=== PATIENT | female | born 1965 | race American Indian/Alaskan Native ===

== ENCOUNTER 2017-12-26 12:08 | Inpatient (IN) | payer MEDICARE ==
[2017-12-26 13:12] LABS: LYMPH # 1.3 K/uL (1.0-4.3); MEAN CORPUSCULAR HEMOGLOBIN 28.1 pg (27.0-31.0); MONO # 0.3 K/uL (0.0-0.8); NEUT # 2.9 K/uL (1.8-7.0)
[2017-12-26 13:18] LABS: BASO % 0.7 % (0.0-2.0); EOS % 0.9 % (0.0-4.0); LYMPH % 27.3 % (20.0-40.0); MEAN CELL VOLUME 85.7 fL (81.0-99.0); MEAN CORPUSCULAR HGB CONC 32.8 g/dL (33.0-37.0); MEAN PLATELET VOLUME 8.3 fL (7.2-11.7); MONO % 7.3 % (0.0-10.0); NEUT % 63.8 % (50.0-75.0); RBC 4.27 Mil/uL (3.80-5.20); RED CELL DISTRIBUTION WIDTH 21.2 % (11.5-14.5); WHITE BLOOD COUNT 4.6 K/uL (4.8-10.8)
[2017-12-26 13:27] LABS: ALB/GLOB RATIO 1.2 (1.0-2.1); ALBUMIN 4.6 g/dL (3.5-5.0); ALT/SGPT 45 U/L (9-52); AST/SGOT 95 U/L (14-36); BLOOD UREA NITROGEN 10 mg/dL (7-17); CALCIUM 8.7 mg/dl (8.6-10.4); GFR AFRICAN-AMERICAN > 60; GFR NON-AFRICAN AMERICAN > 60
[2017-12-26 13:33] LABS: SQUAMOUS EPITHIAL 5 /hpf (0-5); URINE BILIRUBIN NEGATIVE (NEGATIVE); URINE BLOOD NEGATIVE (NEGATIVE); URINE CLARITY Hazy (Clear); URINE COLOR Yellow (YELLOW); URINE GLUCOSE (UA) NORMAL (Normal); URINE LEUKOCYTE ESTERASE NEG Leu/uL (Negative); URINE PROTEIN 1+ mg/dL (NEGATIVE)
[2017-12-26 13:38] LABS: BARBITURATES, UR NEGATIVE (NEGATIVE); BENZODIAZEPINES, UR NEGATIVE (NEGATIVE); OPIATES, UR NEGATIVE (NEGATIVE); PHENCYCLIDINE, UR NEGATIVE (NEGATIVE)
[2017-12-26] MEDS ORDERED: Potassium Chloride 20 mEq ER Tab PO STA (13:38)
--- NOTE | 2017-12-26 14:12 | C.PDOC ---
History Of Present Illness 52-year-old female, presents to the emergency department requesting detox from alcohol. Patient last use was this morning. Denies any nausea/vomiting, withdrawal, or any other associated symptoms. No other complaints at this time. Time Seen by Provider: 12/26/17 12:46 Chief Complaint (Nursing): Substance Abuse History Per: Patient History/Exam Limitations: no limitations Past Medical History Reviewed: Historical Data, Nursing Documentation, Vital Signs Vital Signs: Last Vital Signs Temp 98.0 F 12/26/17 15:40 Pulse 95 H 12/26/17 15:40 Resp 20 12/26/17 15:40 BP 142/95 H 12/26/17 15:40 Pulse Ox 95 12/26/17 15:40 - Medical History PMH: Back Problems, Depression, HTN, Hypercholesterolemia, Seizures (ETOH related) Surgical History: Cholecystectomy Family History: States: No Known Family Hx - Social History Hx Alcohol Use: Yes Hx Substance Use: Yes - Immunization History Hx Tetanus Toxoid Vaccination: No Hx Influenza Vaccination: No Hx Pneumococcal Vaccination: No Review Of Systems Constitutional: Negative for: Fever, Chills Cardiovascular: Negative for: Chest Pain Gastrointestinal: Negative for: Vomiting Skin: Negative for: Rash Psych: Negative for: Anxiety, Suicidal ideation, Withdrawal Physical Exam - Physical Exam Appears: Non-toxic, No Acute Distress, Other (EtOH on breath. No signs or sx of acute withdrawal) Skin: Normal Color, Warm, Dry, No Rash Head: Atraumatic, Normacephalic Eye(s): bilateral: Normal Inspection, PERRL, EOMI Nose: Normal Oral Mucosa: Moist Lips: Normal Appearing Neck: Normal ROM Chest: Symmetrical Cardiovascular: Rhythm Regular, No Murmur Respiratory: Normal Breath Sounds, No Accessory Muscle Use Gastrointestinal/Abdominal: Soft, No Tenderness Extremity: Normal ROM, No Deformity, No Swelling Neurological/Psych: Oriented x3, Normal Speech (No focal deficit) ED Course And Treatment - Laboratory Results Result Diagrams: 12/26/17 13:06 12/26/17 13:06 O2 Sat by Pulse Oximetry: 95 (RA) Pulse Ox Interpretation: Normal Medical Decision Making Medical Decision Making: Impression: Alcohol detox Plan: * Bloodwork * Crisis evaluation * UA Labs ordered and reviewed. Potassium low, K-Chloride ordered. In my clinical judgment patient is medically cleared and stable for psychiatric admission. Alcohol level is over 200 will await for sobriety. 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 As per CW patient is to be admitted for detox under Dr Chen service Disposition Counseled Patient/Family Regarding: Diagnosis - Disposition Disposition: HOSPITALIZED Disposition Time: 16:20 Condition: STABLE - POA Present On Arrival: None - Clinical Impression Clinical Impression: Alcohol dependence - Scribe Statement The provider has reviewed the documentation as recorded by the Scribe (Christi Echols) All medical record entries made by the Scribe were at my direction and personally dictated by me. I have reviewed the chart and agree that the record accurately reflects my personal performance of the history, physical exam, medical decision making, and the department course for this patient. I have also personally directed, reviewed, and agree with the discharge instructions and disposition. Decision To Admit - Pt Status Changed To: Hospital Disposition Of: Inpatient - Admit Certification Admit to Inpatient:: After my assessment, the patient will require hospitalization for at least two midnights. This is because of the severity of symptoms shown, intensity of services needed, and/or the medical risk in this patient being treated as an outpatient. - InPatient: Physician Admission Certification: I certify that this patient requires 2 or more midnights of care for the following reason:: Patient for inpatient detox of alcohol - . Bed Request Type: Detox Admitting Physician: Michelle Chen Patient Diagnosis: Alcohol dependence
[2017-12-26] MEDS ORDERED: Potassium Chloride 20 mEq ER Tab PO ONE (14:48)
--- NOTE | 2017-12-26 16:51 | PCM.BM ---
<Marta Blue - Last Filed: 12/26/17 16:50> Treatment Plan Problems - Problems identified on initial assessmt potiential for automonic instability related to alcohol withdrawal Date Initiated: 12/26/17 Time Initiated: 16:51 Assessment reference: NA Status: Active Treatment assets and liabiliti Patient Assests: ADL independent, cognitively intact Patient Liabilities: substance abuse, medical problems - Milieu Protocol Maintain good personal hygiene: daily Encourage regular showers, daily Remind patient to perform daily oral care, daily Assist patient to perform ADL's Maintain personal safety: every shift Educate patient to report safety concerns to staff, every shift Monitor environment for contraband/sharps Medication safety: Monitor for expected outcome, potential side effects: every shift, Assess barriers to learning: every shift, Assess readiness for medication education: every shift <Michelle Chen - Last Filed: 12/27/17 22:01> - Diagnosis (1) Alcohol dependence Status: Acute Interventions: 12/27/17 22:00 * Assess 7x/week regarding severity of withdrawal * Educate regarding risks, benefits, side effects and alternatives of medications * Use Motivational Interviewing for abstinence * Use CBT for relapse prevention * Medication management for withdrawal symptoms * Encourage medication assisted treatment *
[2017-12-26] MEDS: Multiple Vitamins Tab PO SCH (17:30)
[2017-12-26] MEDS ORDERED: Aluminum Hydroxide/Magnesium Hydroxide Susp (30 mL) PO PRN (18:32)
[2017-12-27 08:54] LABS: ALB/GLOB RATIO 1.3 (1.0-2.1); ALBUMIN 4.4 g/dL (3.5-5.0); ALT/SGPT 43 U/L (9-52); AST/SGOT 77 U/L (14-36); BLOOD UREA NITROGEN 10 mg/dL (7-17); CALCIUM 8.6 mg/dl (8.6-10.4); GFR AFRICAN-AMERICAN > 60; GFR NON-AFRICAN AMERICAN > 60
[2017-12-27] MEDS ORDERED: Potassium Chloride 20 mEq ER Tab PO ONE (09:45)
[2017-12-27] MEDS: Multiple Vitamins Tab PO SCH (10:43)
[2017-12-27] MEDS: Magnesium Oxide 400 mg Tab UD PO SCH ×3 (10:43→17:25)
--- NOTE | 2017-12-27 14:23 | PCM.PSYCH ---
Initial Psychiatric Evaluation - Initial Psychiatric Evaluation Type of Admission: Voluntary Legal Status: Capacity Chief Complaint (in patient's own words): "I am here for alcohol withdrawal" History of Present Illness and Precipitating Events: Patient is a 52 year old female who presents to the ED requesting detox from alcohol. Patient last use was in the morning of admission. Patient drinks 1 L of vodka a day (last 1 with this usage and started initially drinking 13 years) . Patient is single, living alone, unemployed, and has one child (34 y/o). This is the first time the patient is presenting to this hospital. Patient does not have detox and rehab history. Patient has attended AA meetings in the past. Patient smokes PPD for the past 20 plus years. On occasion, patient smokes marijuana. Patient denies other use of drugs. Patient is currently having mild withdrawal symptoms, complaining of fatigue, body aches, and nausea. Patient is interested in outpatient rehab or AA and will work with the counselor to make a final plan. Patient denies depression and suicidal ideation. Patient denies auditory, visual, or tactile hallucinations. Detox Hx: denies Rehab Hx: AA meetings (1x) Medical Hx: Stroke, HTN, Lupus, HLD Surgical Hx: Cataract surgery Family Hx: denies Psych Hx: denies Allergies: Sulfur, ACEi Home Meds: aspirin, baclofen, citalopram, duloxetine, folic acid, gabapentin, losartan, simvastatin, thiamine Current Medications: Active Medications Generic Name Dose Route Start Last Admin Trade Name Freq PRN Reason Stop Dose Admin Al Hydrox/Mg Hydrox/Simethicone 30 ml 12/26/17 18:32 Maalox 30 Ml PO Q6 PRN Indigestion / Heartburn Aspirin 81 mg 12/27/17 10:00 12/27/17 10:43 Aspirin Chewable PO 81 mg DAILY ROM Administration Baclofen 10 mg 12/27/17 10:00 12/27/17 10:44 Lioresal PO 10 mg BID ROM Administration Chlordiazepoxide 25 mg 12/26/17 18:00 12/27/17 12:59 Librium PO 12/30/17 17:59 25 mg Q6H ROM Administration Taper Chlordiazepoxide 25 mg 12/26/17 16:51 12/26/17 21:35 Librium PO 25 mg Q4H PRN Administration Alcohol Withdrawal Clonidine HCl 0.1 mg 12/26/17 16:51 12/27/17 12:59 Catapres PO 0.1 mg Q4H PRN Administration Symptoms of alcohol withdrawl Folic Acid 1 mg 12/26/17 17:00 12/27/17 10:44 Folic Acid PO 1 mg DAILY ROM Administration Gabapentin 300 mg 12/27/17 10:00 12/27/17 12:59 Neurontin PO 300 mg TID ROM Administration Losartan Potassium 50 mg 12/27/17 10:00 12/27/17 10:43 Cozaar PO 50 mg DAILY ROM Administration Magnesium Oxide 400 mg 12/27/17 10:00 12/27/17 12:59 Mag-Ox PO 12/30/17 10:01 400 mg TID ROM Administration Multivitamins 1 tab 12/26/17 17:00 12/27/17 10:43 Hexavitamin PO 1 tab DAILY ROM Administration Nicotine 1 patch 12/27/17 10:30 12/27/17 10:43 Nicoderm Cq TD 1 patch DAILY ROM Administration Ondansetron HCl 4 mg 12/27/17 09:12 12/27/17 09:26 Zofran Odt PO 4 mg Q8 PRN Administration Nausea/Vomiting Thiamine HCl 100 mg 12/26/17 17:00 12/27/17 10:43 Vitamin B1 Tab PO 100 mg DAILY ROM Administration Topiramate 50 mg 12/27/17 10:00 12/27/17 10:43 Topamax PO 50 mg BID ROM Administration Trazodone HCl 100 mg 12/27/17 22:00 Desyrel PO HS PRN Insomnia Past Psychiatric History - Past Psychiatric History Previous Treatment History: None Pertinent Medical Hx (Current Medical&Sleep Prob, Allergies): Allergies Allergy/AdvReac Type Severity Reaction Status Date / Time ERIC Inhibitors Allergy Verified 12/26/17 12:17 Sulfa (Sulfonamide Allergy Verified 12/26/17 12:17 Antibiotics) Aspirin [Aspirin EC] 81 mg PO DAILY 12/26/17 Baclofen [Lioresal] 10 mg PO BID 12/26/17 Calcium Carbonate [Calcium] 600 mg PO DAILY 12/26/17 Citalopram [celeXA] 20 mg PO DAILY 12/26/17 DULoxetine [Cymbalta] 60 mg PO DAILY 12/26/17 Ergocalciferol (Vitamin D2) [Vitamin D2] 50,000 unit PO QWK 12/26/17 Folic Acid 1 mg PO DAILY 12/26/17 Gabapentin 300 mg PO QID 12/26/17 Losartan Potassium 50 mg PO DAILY 12/26/17 Mirtazapine [Remeron] 10 mg PO DAILY 12/26/17 Potassium Chloride [K-Dur 20] 8 meq PO DAILY 12/26/17 Simvastatin 20 mg PO DAILY 12/26/17 Thiamine [Vitamin B-1] 100 mg PO DAILY 12/26/17 Topiramate 50 mg PO BID 12/26/17 Review of Systems - Review of Systems All systems: reviewed and no additional remarkable complaints except - Neurological Neurological: UNREMARKABLE - Psychiatric Psychiatric: Abnormal Sleep Pattern, Anxiety, Irritability. absent: Auditory Hallucinations, Confusion, Depression, Homicidal Ideation, Hopelessness, Suicidal Ideation, Visual Hallucinations, Tactile Hallucinations Mental Status Examination - Personal Presentation Personal Presentation: Looks older than stated age - Affect Affect: Constricted - Motor Activity Motor Activity: Calm - Reliability in Providing Information Reliability in Providing Information: Good - Speech Speech: Organized - Mood Mood: Neutral - Formal Thought Process Formal Thought Process: No Impairment - Obsessions/Compulsions Obsessions: No Compulsions: No - Cognitive Functions Orientation: Person, Place, Time Sensorium: Alert Attention/Concentration: Attentive Abstract Thinking: [place] Estimate of Intelligence: Average Judgement: Intact, as evidence by: Good judgement Memory: Recent intact, as evidence by: Ability to recall events of the day, Remote intact, as evidenced by: Abilit to recall sig. life events - Risk Risk: Withdrawal, Diminished functioning - Strength & Assets Inventory Strength & Assets Inventory: Cooperative - Limitations Limitations: Living alone DSM 5 DX - DSM 5 DSM 5 Diagnosis: Alcohol Withdrawal Alcohol Use Disorder, Severe Tobacco Use Disorder, Severe - Recommended/Plan of Treatment Treatment Recommendations and Plan of Treatment: Librium detox As needed medications Gabapentin for augmentation Attend groups and activities Supportive therapy and psychoeducation [place] for abstinence CBT for relapse prevention Encourage MAT Refer to rehab or IOP Attend self-help groups as well Smoking Cessation 34 min Projected ELOS: 5 days Prognosis: good w treatment - Smoking Cessation Smoking Cessation Initiated: Yes
[2017-12-28 07:51] LABS: BLOOD UREA NITROGEN 11 mg/dL (7-17); CALCIUM 8.3 mg/dl (8.6-10.4); GFR AFRICAN-AMERICAN > 60; GFR NON-AFRICAN AMERICAN > 60; HDL CHOLESTEROL 42 mg/dL (30-70)
[2017-12-28 08:01] LABS: LDL CHOLESTEROL 126 mg/dL (0-129)
[2017-12-28] MEDS: Multiple Vitamins Tab PO SCH (09:08)
[2017-12-28] MEDS: Magnesium Oxide 400 mg Tab UD PO SCH ×3 (09:09→17:26)
--- NOTE | 2017-12-28 12:21 | PCM.PYCHPN ---
Psychiatric Progress Note - Psychiatric Progress Note Patient seen today, length of contact: 16 min Patient Chief Complaint: "I am not well" Problems Identified/Issues Discussed: The pt is seen, chart reviewed, case discussed with staff. The pt is compliant with medications and reports no side-effects. Symptoms are improving but needs more time to stabilize. After care discussed, support and psychoeducation given. Medication Change: Yes (detox changes daily) Medical Record Reviewed: Yes Mental Status Examination - Cognitive Function Orientation: Person, Place, Time Memory: Intact Attention: WNL Concentration: Poor Association: WNL Fund of Knowledge: WNL - Mood Mood: Neutral - Affect Affect: Constricted - Speech Speech: Appropriate - Formal Thought Process Formal Thought Process: No Impairment - Suicidal Ideation Suicidal Ideation: No - Homicidal Ideation Homicidal Ideation: No Goal/Treatment Plan - Goal/Treatment Plan Need for Continued Stay: Discharge may exacerbated symptoms, Severe functional impairment Progress Toward Problem(s) and Goals/Treatment Plan: Librium detox As needed medications Gabapentin for augmentation Attend groups and activities Supportive therapy and psychoeducation [place] for abstinence CBT for relapse prevention Encourage MAT Refer to rehab or IOP Attend self-help groups as well Smoking Cessation Estimated Date of D/C: 01/01/18
[2017-12-28] MEDS: Potassium Chloride 20 mEq ER Tab PO SCH (12:45)
[2017-12-29 09:09] VITALS: RESP 18
[2017-12-29] MEDS: Multiple Vitamins Tab PO SCH (09:31)
[2017-12-29] MEDS: Potassium Chloride 20 mEq ER Tab PO SCH (09:31)
[2017-12-29] MEDS: Magnesium Oxide 400 mg Tab UD PO SCH ×3 (09:32→17:03)
[2017-12-29] MEDS ORDERED: Ergocalciferol 50,000 Intl Units Cap PO SCH (12:30)
[2017-12-30] MEDS: Multiple Vitamins Tab PO SCH (09:04)
[2017-12-30] MEDS: Magnesium Oxide 400 mg Tab UD PO SCH (09:04)
--- NOTE | 2017-12-30 09:06 | PCM.PYCHPN ---
Psychiatric Progress Note - Psychiatric Progress Note Patient seen today, length of contact: 16 min Patient Chief Complaint: "I am tired" Problems Identified/Issues Discussed: The pt is seen, chart reviewed, case discussed with staff. Support and psychoeducation given, CBT and [place] used briefly No new symptoms reported, improving slowly and needs more time No SEs from medications, risks discussed. After care discussed Medication Change: Yes (detox changes daily) Medical Record Reviewed: Yes Mental Status Examination - Cognitive Function Orientation: Person, Place, Time Memory: Intact Attention: WNL Concentration: Poor Association: WNL Fund of Knowledge: WNL - Mood Mood: Neutral - Affect Affect: Constricted - Speech Speech: Appropriate - Formal Thought Process Formal Thought Process: No Impairment - Suicidal Ideation Suicidal Ideation: No - Homicidal Ideation Homicidal Ideation: No Goal/Treatment Plan - Goal/Treatment Plan Need for Continued Stay: Discharge may exacerbated symptoms, Severe functional impairment Progress Toward Problem(s) and Goals/Treatment Plan: Librium detox As needed medications Gabapentin for augmentation Attend groups and activities Supportive therapy and psychoeducation [place] for abstinence CBT for relapse prevention Encourage MAT Refer to rehab or IOP Attend self-help groups as well Smoking Cessation Estimated Date of D/C: 01/01/18
[2017-12-30] MEDS ORDERED: Magnesium Hydroxide Susp 30 ml UD PO ONE (13:21)
--- NOTE | 2017-12-30 13:45 | PCM.PYCHPN ---
Psychiatric Progress Note - Psychiatric Progress Note Patient seen today, length of contact: 16 min Patient Chief Complaint: "I couldn't sleep well" Problems Identified/Issues Discussed: The pt is seen, chart reviewed, case discussed with staff. The pt is compliant with medications and reports no side-effects. Symptoms are improving but needs more time to stabilize. After care discussed, support and psychoeducation given. Sleep hygiene and meds discussed Medication Change: Yes (detox changes daily) Medical Record Reviewed: Yes Mental Status Examination - Cognitive Function Orientation: Person, Place, Time Memory: Intact Attention: WNL Concentration: Poor Association: WNL Fund of Knowledge: WNL - Mood Mood: Neutral - Affect Affect: Constricted - Speech Speech: Appropriate - Formal Thought Process Formal Thought Process: No Impairment - Suicidal Ideation Suicidal Ideation: No - Homicidal Ideation Homicidal Ideation: No Goal/Treatment Plan - Goal/Treatment Plan Need for Continued Stay: Discharge may exacerbated symptoms, Severe functional impairment Progress Toward Problem(s) and Goals/Treatment Plan: Librium detox As needed medications Gabapentin for augmentation Attend groups and activities Supportive therapy and psychoeducation [place] for abstinence CBT for relapse prevention Encourage MAT Refer to rehab or IOP Attend self-help groups as well Smoking Cessation Estimated Date of D/C: 01/01/18
[2017-12-31 08:32] VITALS: BP 100/72; PULSE 81; TEMP 99.5; O2SAT 99
--- NOTE | 2017-12-31 08:38 | PCM.PYCHDC ---
Mental Status Examination - Mental Status Examination Orientation: Person Discharge Summary - Discharge Note Consultations:: List each consultation separately and include: 1. Reason for request. 2. Findings. 3. Follow-up Summary of Hospital Course include:: 1. Description of specific treatment plan utilized for patients during their course of treatmen. 2. Summarize the time- course for resolution of acute symptoms and/or regressed behaviors. 3. Describe issues identified and worked on during hospitalization. 4. Describe medication utilized. 5. Describe medical problems identified and treated. 6. Reassessment of suicide risk Summary of Hospital Course: Patient is a 52 year old female who presents to the ED requesting detox from alcohol. Patient last use was in the morning of admission. Patient drinks 1 L of vodka a day (last 1 with this usage and started initially drinking 13 years) . Patient is single, living alone, unemployed, and has one child (34 y/o). This is the first time the patient is presenting to this hospital. Patient does not have detox and rehab history. Patient has attended AA meetings in the past. Patient smokes PPD for the past 20 plus years. On occasion, patient smokes marijuana. Patient denies other use of drugs. Patient is currently having mild withdrawal symptoms, complaining of fatigue, body aches, and nausea. Patient is interested in outpatient rehab or AA and will work with the counselor to make a final plan. Patient denies depression and suicidal ideation. Patient denies auditory, visual, or tactile hallucinations. Detox Hx: denies Rehab Hx: AA meetings (1x) Medical Hx: Stroke, HTN, Lupus, HLD Surgical Hx: Cataract surgery Family Hx: denies Psych Hx: denies Allergies: Sulfur, ACEi Home Meds: aspirin, baclofen, citalopram, duloxetine, folic acid, gabapentin, losartan, simvastatin, thiamine She will go to AA and [facility] in [place]. - Diagnosis (1) Alcohol dependence Current Visit: Yes Status: Acute - Final Diagnosis (DSM 5) Condition upon Discharge: STABLE Disposition: HOME/ ROUTINE Follow-up Treatment Plan: Librium detox As needed medications Gabapentin for augmentation Attend groups and activities Supportive therapy and psychoeducation [place] for abstinence CBT for relapse prevention Encourage MAT Refer to rehab or IOP Attend self-help groups as well Smoking Cessation Prescriptions/Medication Reconciliation: Aspirin [Aspirin Chewable] 81 mg PO DAILY #30 chew Baclofen [Lioresal] 10 mg PO BID #60 tab Calcium Carbonate [Oscal] 500 mg PO DAILY #30 tab Ergocalciferol [Drisdol 50,000 Intl Units Cap] 1 cap PO Q7D #4 cap Gabapentin [Neurontin] 300 mg PO TID #90 cap Losartan [Cozaar] 50 mg PO DAILY #30 tab Magnesium Oxide [Mag-Ox] 400 mg PO DAILY #30 tab Multivitamins [Hexavitamin] 1 tab PO DAILY #30 tab Topiramate [Topamax] 50 mg PO BID #60 tab traZODone [Desyrel] 100 mg PO HS PRN #30 tab PRN Reason: Insomnia
[2017-12-31] MEDS: Multiple Vitamins Tab PO SCH (10:05)
== END 2017-12-31 11:00 | disposition home or self-care (01) | DRG 895 ==
LOC: C.ER 12:08 → C.7D 16:24
PROVIDERS: ADMIT Psychiatry & Neurology Psychiatry; ATTEND Psychiatry & Neurology Psychiatry
PROC: HZ2ZZZZ Detoxification Services for Substance Abuse Treatment (ICD-10-PCS; principal; 2017-12-26)
PROC: HZ52ZZZ Individual Psychotherapy for Substance Abuse Treatment, Cognitive-Behavioral (ICD-10-PCS; 2017-12-26)
PROC: HZ59ZZZ Individual Psychotherapy for Substance Abuse Treatment, Supportive (ICD-10-PCS; 2017-12-26)
PROC: HZ56ZZZ Individual Psychotherapy for Substance Abuse Treatment, Psychoeducation (ICD-10-PCS; 2017-12-26)
DX: F10.239 Alcohol dependence with withdrawal, unspecified (principal); F12.90 Cannabis use, unspecified, uncomplicated; F17.200 Nicotine dependence, unspecified, uncomplicated; I10 Essential (primary) hypertension; E78.5 Hyperlipidemia, unspecified; Z86.73 Personal history of transient ischemic attack (TIA), and cerebral infarction without residual deficits; E78.00 Pure hypercholesterolemia, unspecified; F32.9 Major depressive disorder, single episode, unspecified